=== PATIENT | female | born 1955 | race Caucasian/White ===

== ENCOUNTER 2018-02-23 13:55 | Inpatient (IN) | payer OTHER ==
[~2018-02-23] VITALS: Ht 167.6 cm; Wt 75.7 kg
[~2018-02-23 13:55] MED LIST: APRISO0.375 GM PO; ASPIRIN CHEW81 MG PO; ASPIRIN81 MG PO; ATORVASTATIN CA40 MG PO; CALCIUM PO; CIPRO500 MG PO; CRANBERRY PLUS VIT C PO; DAILY VITAMIN1 EAC3 PO; FLAGYL250 MG PO; LEVAQUIN500 MG PO; LEVOTHYROXINE75 MCG PO; LEVOTHYROXINE88 MCG PO; LISINOPRIL40 MG PO; LISINOPRIL5 MG PO; MACRODANTIN100 MG PO; NIASPAN500 MG; OMEGA 3 1,0001 EACH PO; PROBIOTIC & AC1 EACH PO; THYROID MED; TYLENOL WITH C1 EACH PO; ULTRAM 50MG50 MG PO; VITAMIN B12 PO; VITAMIN C1000 M1 PO; ZOFRAN ODT4 MG SL
--- OUTSIDE RECORDS SUMMARY | 2018-02-23 13:59 | XMS REPORT ---
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 Allergies, Adverse Reactions, Alerts This patient has no known allergies or adverse reactions. Medications This patient has no known medications. Results Test Description Test Time Test Comments Text Results Atomic Results Result Comments ABDOMEN COMP INCL UPR or DECUB [place] [address] Patient Name: EDMUND PRINCE MR #: [id number] : 1955 Age/Sex: 62/F Req #: [id number] Adm Physician: JERRY ARREDONDO MD Ordered by: NADYA TAVERAS MD Report #: [id number] Location: MED/SURG Room/Bed: [facility] Procedure: [id number] DX/ABDOMEN COMP INCL UPR or DECUB Exam Date: 05/12/17 Exam Time: 0555 REPORT STATUS: Signed EXAM: ABDOMEN COMP INCL UPR or DECUB, supine and erect DATE: 05/12/2017 5:00 AM Time stamp on exam: 0545 hours INDICATION: Small bowel obstruction COMPARISON: KUB May 11, 2017 FINDINGS: LINES /TUBES: None BOWEL PATTERN: Resolution of small bowel dilation. Oral contrast seen in the ascending and transverse colon. SOFT TISSUES: Surgical sutures project over the pelvis. LUNG BASES: Not included BONES: No acute findings. IMPRESSION: No evidence of bowel obstruction. Signed by: Dr. Arlene Ortiz M.D. on 05/12/2017 6:32 AM Dictated By: ARLENE ORTIZ MD 1 Transcribed By: SUZIE on 05/12/17631 COPY TO: NADYA TAVERAS MD ABDOMEN COMP INCL UPR or DECUB [place] [address] Patient Name: EDMUND PRINCE MR #: [id number] : 1955 Age/Sex: 62/F Req #: [id number] Adm Physician: JERRY ARREDONDO MD Ordered by: NADYA TAVERAS MD Report #: [id number] Location: MED/SURG Room/Bed: [facility] Procedure: [id number] DX/ABDOMEN COMP INCL UPR or DECUB Exam Date: 05/11/17 Exam Time: 0532 REPORT STATUS: Signed EXAM: ABDOMEN COMP INCL UPR or DECUB, supine and erect DATE: 05/11/2017 5:00 AM Time stamp on exam: 0532 hours INDICATION: Small bowel obstruction COMPARISON: KUB May 09, 2017 FINDINGS: LINES /TUBES: None BOWEL PATTERN: Stable mildly dilated loops of small bowel. Residual oral contrast seen in the right colon. SOFT TISSUES: No abnormal calcifications. No mass effect. LUNG BASES: Bibasilar atelectasis BONES: No acute findings. IMPRESSION: No interval change. Partial small bowel obstruction versus ileus. Signed by: Dr. Arlene rOtiz M.D. on 05/11/2017 6:13 AM Dictated By: ARLENE ORTIZ MD 2 Transcribed By : SUZIE on 05/11/17612 COPY TO: NADYA TAVERAS MD ABDOMEN COMP INCL UPR or DECUB [place] [address] Patient Name: EDMUND PRINCE MR #: [id number] : 1955 Age/Sex: 62/F Req #: [id number] Adm Physician: JERRY ARREDONDO MD Ordered by: NADYA TAVERAS MD Report #: [id number] Location: MED/SURG Room/Bed: [facility] Procedure: [id number] DX/ABDOMEN COMP INCL UPR or DECUB Exam Date: 05/10/17 Exam Time: 626 REPORT STATUS: Signed EXAM: ABDOMEN COMP INCL UPR or DECUB, supine and erect DATE: 05/10/2017 5:00 AM Time stamp on exam: 0627 hours INDICATION: Small bowel obstruction COMPARISON: KUB May 09, 2017 FINDINGS: LINES /TUBES: The nasal/orogastric tube is no longer visualized. BOWEL PATTERN: Mildly distended loop of small bowel in the pelvis to 3.5 cm. Oral contrast is seen in the right and transverse colon. SOFT TISSUES: No abnormal calcifications. No mass effect. LUNG BASES: Bibasilar atelectasis. BONES: No acute findings. IMPRESSION: Mildly distended loops of small bowel in the pelvis to 3.5 cm. And could represent ileus or partial small bowel obstruction. Signed by: Dr. Arlene Ortiz M.D. on 6:56 AM Dictated By: ARLENE ORTIZ MD 5 Transcribed By: SUZIE on 05/10/17655 COPY TO: NADYA TAVERAS MD ABDOMEN COMP INCL UPR or DECUB [place] [address] Patient Name: EDMUND PRINCE MR #: [id number] : 1955 Age/Sex: 62/F Req #: [id number] Adm Physician: JERRY ARREDONDO MD Ordered by: NADYA TAVERAS MD Report #: [id number] Location: MED/SURG Room/Bed: [facility] Procedure: [id number] DX/ABDOMEN COMP INCL UPR or DECUB Exam Date: 05/09/17 Exam Time: 05 REPORT STATUS: Signed EXAM: ABDOMEN COMP INCL UPR or DECUB, supine and erect DATE: 05/09/2017 5:00 AM Time stamp on exam: 0522 hours INDICATION: Small bowel obstruction COMPARISON: KUB May 08, 2017 FINDINGS: LINES /TUBES: Stable position of nasal/orogastric tube. BOWEL PATTERN: Oral contrast is seen throughout the colon. General paucity of small bowel gas. SOFT TISSUES: Surgical sutures lower pelvis. LUNG BASES: Bibasilar atelectasis. BONES: No acute findings. IMPRESSION: No findings to suggest bowel obstruction. Signed by: Dr. Arlene Ortiz M.D. on 05/09/2017 6:24 AM Dictated By: ARLENE ORTIZ MD 3 Transcribed By: SUZIE on 623 COPY TO: NADYA TAVERAS MD ABDOMEN COMP INCL UPR or DECUB [place] [address] Patient Name: EDMUND PRINCE MR #: [id number] : 1955 Age/Sex: 62/F Req #: [id number] Adm Physician: JERRY ARREDONDO MD Ordered by: NADYA TAVERAS MD Report #: [id number] Location: MED/SURG Room/Bed: [facility] Procedure: [id number] DX/ABDOMEN COMP INCL UPR or DECUB Exam Date: Exam Time: REPORT STATUS: Signed EXAM: ABDOMEN COMP INCL UPR or DECUB DATE: 05/08/2017 5:00 AM Time stamp on exam: 6 hours a.m. INDICATION: Bowel obstruction. COMPARISON: CT of the abdomen and pelvis in 05/07/2017 and KUB on 05/07/2017 FINDINGS : LINES/TUBES: NG tube is visualized with tip overlying the left upper quadrant BOWEL PATTERN: Interval increase in distention of mid portion of the small bowel measuring 4.4 cm in diameter. However, the oral contrast has reached the colon. SOFT TISSUES: No abnormal calcifications. No mass effect. LUNG BASES: Not included BONES: No acute findings. IMPRESSION: Persistent segmental dilatation of the mid small bowel. However, the oral contrast has reached the colon suggestive of partial small bowel obstruction Signed by: Dr. Rome Bishop M.D. on 05/08/2017 6:46 AM Dictated By: ROME PETERS MD 5 Transcribed By: SUZIE on 05/08/17645 COPY TO: NADYA TAVERAS MD ABDOMEN-1VIEW (KUB) [place] [address] Patient Name: EDMUND PRINCE MR #: [id number] : 1955 Age/Sex: 62/F Req # : [id number] Adm Physician: JERRY ARREDONDO MD Ordered by: DUANE PATEL MD Report #: [id number] Location: MED/SURG Room/Bed: [facility] _ Procedure: [id number] DX/ABDOMEN-1VIEW (KUB) Exam Date: 05/07/17 Exam Time: 1715 REPORT STATUS: Signed EXAM: Abdomen, 1 Views INDICATION: Pain. COMPARISON: CT abdomen and pelvis 2016. FINDINGS: LINES: Enteric feeding catheter is present with the tip projecting over the expected region of the gastric fundus. Bowel: No air fluid levels.. No pneumoperitoneum.. Moderate amount of retained feces and air are noted in the colon and rectum. No calcifications project over the renal shadows, expected course of the ureters bilaterally, and bladder. Soft tissues: Normal. Bones: No acute osseous abnormality. Impression: No acute radiographic abnormality. Signed by: Dr. Jonathan Lagunas M.D. on 05/07/2017 5:31 PM Dictated By: JONATHAN LAGUNAS MD 30 Transcribed By: SUZIE on 05/07/171730 COPY TO: DUANE PATEL MD CT ABDOMEN/PELVIS [place] [address] Patient Name: EDMUND PRINCE MR #: [id number] : 1955 Age/Sex: 62/F Req # : [id number] Adm Physician: Ordered by: DUANE PATEL MD Report #: [id number] Location: ER Room/Bed: Procedure: [id number] CT/CT ABDOMEN/PELVIS WO Exam Date: 05/07/17 Exam Time: 1507 REPORT STATUS: Signed EXAM: CT Abdomen and Pelvis WITHOUT contrast INDICATION: Abdominal pain COMPARISON: CT abdomen and pelvis TECHNIQUE: Abdomen and pelvis were scanned utilizing a multidetector helical scanner from the lung base to the pubic symphysis. Coronal and sagittal reformations were obtained. The lack of intravenous contrast limits the evaluation of the solid organs, vasculature, and possible lymphadenopathy. Protocol: General survey without contrast IV CONTRAST : No intravenous contrast was administered as per physician request. ORAL CONTRAST: None. COMPLICATIONS: None. RADIATION DOSE: Total Exam DLP: 224.4 mGy*cm. CTDIvol has been reviewed. It is below the limits set by the Radiation Protocol Committee (RPC). FINDINGS: LINES: None. Lower thorax: No parenchymal abnormality. No pneumothorax. No pleural effusion. Bilateral breast prostheses. Liver: No focal mass. No hepatomegaly. Normal parenchyma. Gallbladder: No gallstones. No gallbladder distention. Biliary tree: No intrahepatic duct dilation. No extrahepatic duct dilation. Spleen: No splenomegaly. No focal mass. Pancreas: No focal mass. Normal pancreatic duct. No peripancreatic inflammatory changes. Kidneys: No obstructing calculi. No hydronephrosis. No cysts. No perinephric soft tissue inflammatory changes. Adrenal glands: No adrenal nodules.. Bladder: Normal urinary bladder. Pelvic organs: Hysterectomy. No ovaries are visualized. GI: No bowel wall thickening. Multiple fluid-filled distended loops of small bowel are present, with a likely transition zone in the lower pelvis. Stomach is normal. Postoperative changes of the sigmoid colon. No appendix is visualized. A moderate amount of retained feces limits intraluminal evaluation of the colon. Peritoneum/retroperitoneum: No pneumoperitoneum. No ascites. No drainable fluid collection. Lymph nodes: No lymphadenopathy. . Vessels: No focal abnormality. Atherosclerotic calcifications. Limited evaluation. Bones: No focal abnormality. Minimal degenerative changes of the lumbar spine. Soft tissues: No focal abnormality. IMPRESSION: Fluid-filled dilated loops of small bowel consistent with partial small bowel obstruction, with the transition zone likely located in the lower pelvis. Signed by: Dr. Jonathan Lagunas M.D. on 05/07/2017 3:49 PM Dictated By: JONATHAN LAGUNAS MD 48 Transcribed By: SUZIE on 05/07/171548 COPY TO: DUANE PATEL MD CHEST SINGLE (PORTABLE) [place] [address] Patient Name: EDMUND PRINCE MR #: [id number] : 1955 Age/Sex: 62/F Req #: [id number] Adm Physician: JERRY ARREDONDO MD Ordered by: DUANE PATEL MD Report #: [id number] Location: MED/SURG Room/Bed: [facility] _ Procedure: [id number] DX/CHEST SINGLE (PORTABLE) Exam Date : 05/07/17 Exam Time: 1250 REPORT STATUS: Signed EXAMINATION: Chest, CHEST SINGLE (PORTABLE) INDICATION: Bowel obstruction COMPARISON: Abdominal series with PA chest 03/20/2016 FINDINGS: LINES: Left subclavian chest port with tip projecting over the expected region of the left brachiocephalic vein. Heart: Normal cardiac silhouette. Vascular: The pulmonary vasculature is within normal limits. Mediastinum: No mediastinal, hilar, or axillary mass or lymphadenopathy. Lungs: No parenchymal mass. No focal consolidation. Pleura: No pleural effusion. No pneumothorax. Bones: No acute osseous abnormality. Degenerative changes of the thoracic spine. Soft tissues: Normal. Impression: No acute radiographic abnormality. Signed by: Dr. Jonathan Lagunas M.D. on 05/07/2017 1:23 PM Dictated By: JONATHAN LAGUNAS MD 1323 COPY TO: DUANE PATEL MD
[2018-02-23 14:26] LABS: BASOPHILS % 0.4 % (0.0-1.0); EOSINOPHILS # (AUTO) 0.1 (0.0-0.4); EOSINOPHILS % 0.8 % (0.0-6.0); HEMATOCRIT 44.8 % (34.2-44.1); HEMOGLOBIN 14.6 g/dL (12.0-16.0); LYMPHOCYTES # (AUTO) 1.2 (1.0-3.2); LYMPHOCYTES % 13.6 % (18.0-39.1); MEAN CORPUSCULAR HEMOGLOBIN 28.4 pg (28-32); MEAN CORPUSCULAR HGB CONC 32.6 g/dL (31-35); MEAN CORPUSCULAR VOLUME 87.2 fL (81-99); MONOCYTES # (AUTO) 0.5 (0.2-0.8); MONOCYTES % 5.4 % (4.4-11.3); NEUTROPHILS # (AUTO) 7.3 (2.1-6.9); NEUTROPHILS % 79.5 % (38.7-80.0); PLATELET COUNT 319 x10e3/uL (140-360); RED BLOOD COUNT 5.14 x10e6/uL (3.6-5.1); RED CELL DISTRIBUTION WIDTH 13.7 % (11.7-14.4)
[2018-02-23 14:34] LABS: INR 0.96
[2018-02-23 14:35] LABS: PARTIAL THROMBOPLASTIN TIME 24.1 seconds (23.8-35.5)
[2018-02-23 14:43] LABS: ALANINE AMINOTRANSFERASE 30 IU/L (0-55); ALBUMIN 4.1 g/dL (3.5-5.0); ALBUMIN/GLOBULIN RATIO 1.2 (0.8-2.0); ALKALINE PHOSPHATASE 137 IU/L (40-150); BLOOD UREA NITROGEN 20 mg/dL (7-26); BUN/CREATININE RATIO 22 (6-25); CALCIUM 10.8 mg/dL (8.4-10.2); CARBON DIOXIDE 30 mmol/L (22-29); CHLORIDE 103 mmol/L (98-107); CREATINE KINASE 34 IU/L (29-168); CREATININE, SERUM 0.91 mg/dL (0.57-1.11); EST GLOMERULAR FILTRATION RATE > 60 ML/MIN (60-); GLUCOSE 129 mg/dL (74-118); SODIUM 143 mmol/L (136-145)
[2018-02-23] MEDS ORDERED: MORPHINE SULFATE 2 MG/ML SYR IV STA (15:09)
[2018-02-23] MEDS ORDERED: PANTOPRAZOLE 40 MG 10ML VIAL IV STA (15:09)
[2018-02-23] MEDS ORDERED: ONDANSETRON HCL INJ 2 MG/ML VIAL IV STA (15:09)
[2018-02-23 16:03] LABS: BILIRUBIN,URINE NEGATIVE (NEGATIVE); CLARITY,URINE SL CLOUDY (CLEAR); COLOR,URINE YELLOW (YELLOW); KETONES,URINE TRACE (NEGATIVE); LEUKOCYTE ESTERASE ,URINE TRACE (NEGATIVE); NITRITE,URINE NEGATIVE (NEGATIVE); PROTEIN,URINE DIPSTICK 1+ (NEGATIVE); URINE UROBILINOGEN 0.2 mg/dL (0.2 - 1)
[2018-02-23] MEDS ORDERED: SODIUM CHLORIDE 0.9% 1000ML 1,000 ML IV STA ×2 (16:05→19:35)
[2018-02-23 16:17] LABS: BACTERIA,URINE FEW /HPF; CALCIUM OXALATE CRYSTALS,UR MANY (FEW); EPITHELIAL CELLS,URINE FEW /LPF; MUCUS,URINE FEW (RARE); RBC,URINE 0-5 /HPF (0-5)
--- NOTE | 2018-02-23 18:52 | Diagnostic Imaging Report ---
PROCEDURE: CT ABDOMEN AND PELVIS WITH CONTRAST TECHNIQUE: The abdomen and pelvis were scanned utilizing a multidetector helical scanner from the diaphragm to the lesser trochanter after the IV administration of 100 cc of Isovue 370 and the oral administration of water. Coronal and sagittal multiplanar reformations were obtained. COMPARISON: CT of the abdomen and pelvis from 02/10/2017 and 03/18/2016 INDICATIONS: MID ABDOMINAL PAIN FINDINGS: LOWER THORAX: Subsegmental atelectasis in the lung bases. HEPATOBILIARY: No focal hepatic lesions. No biliary ductal dilatation. SPLEEN: No splenomegaly. PANCREAS: No focal masses or ductal dilatation. ADRENALS: No right adrenal nodules. There is diffuse thickening of the left adrenal gland, likely due to hyperplasia. KIDNEYS/URETERS: No hydronephrosis, stones, or solid mass lesions. PELVIC ORGANS/BLADDER: The uterus is absent. The bladder is unremarkable. PERITONEUM / RETROPERITONEUM: No free air or fluid. LYMPH NODES: No lymphadenopathy. VESSELS: Moderate atherosclerotic calcification of the aorta and its branches. GI TRACT: Post surgical changes of prior low anterior resection with anastomotic suture line in the low rectum. There is diffuse dilatation of the distal jejunal and ileum, measuring up to 3.4 cm. There is a transition point in the pelvis in the distal ileum (series 2, image 55). BONES AND SOFT TISSUES: Bilateral breast implants are partially visualized. IMPRESSION: Small bowel obstruction with transition point in the pelvis, in the distal ileum. Suspect adhesions as an etiology. Overall, the findings appear very similar to the prior study from 02/10/2017. Dictated by: Christiano Puente M.D. on 02/23/2018 at 18:55 Electronically approved by: Christiano Puente M.D. on 02/23/2018 at 18:55
[2018-02-23] MEDS ORDERED: SODIUM CHLORIDE 0.9% 250ML IRRIG IR SCH (19:30)
[2018-02-23] MEDS ORDERED: HYDROMORPHONE 1MG/1ML INJ IV ONE (19:45)
[2018-02-23] MEDS: SODIUM CHLORIDE 0.9% 250ML IRRIG IR SCH ×2 (19:57→19:58)
[2018-02-23] MEDS: FAMOTIDINE 20 MG/2 ML VIAL IV SCH (20:21)
[2018-02-23] MEDS: PIPER-TAZ 3.375 GM 50 ML IV SCH (20:21)
[2018-02-23 20:45] VITALS: BP 119/56
[2018-02-23] MEDS: SODIUM CHLORIDE 0.9% 1000ML 1,000 ML IV SCH (21:20)
--- NOTE | 2018-02-23 21:33 | Diagnostic Imaging Report ---
EXAM: ABDOMEN-1VIEW (KUB) DATE: 02/23/2018 9:00 PM Time stamp on exam: 2111 hours INDICATION: NG tube placement COMPARISON: None FINDINGS: LINES/TUBES: T12 NG tube is visualized in the location of the distal mediastinum at the level of the left T10 transverse process. Advancement is recommended. BOWEL PATTERN: No evidence for obstruction. SOFT TISSUES: There is opacification of the bilateral renal collecting systems without evidence of hydronephrosis. The urinary bladder is partially opacified. There are sutures in the region of the lower pelvis. LUNG BASES: Not included BONES: No acute findings. IMPRESSION: 1. No evidence of small bowel obstruction. 2. NG tube needs to be advanced Signed by: Dr. Rome Bishop M.D. on 02/23/2018 9:30 PM
[2018-02-23] MEDS ORDERED: IOPAMIDOL 370 MG/ML 200 ML INFUS..BTL INJ ONE (22:16)
[2018-02-23] MEDS ORDERED: SODIUM CHLORIDE 0.9% 50ML 50 ML ONE (22:16)
--- NOTE | 2018-02-23 23:23 | Diagnostic Imaging Report ---
EXAM: ABDOMEN-1VIEW (KUB) DATE: 02/23/2018 10:21 PM Time stamp on exam: 2226 hours INDICATION: NG tube repositioning COMPARISON: 02/23/2018 at 2112 hours FINDINGS: LINES/TUBES: NG tube is visualized in the location of the distal mediastinum at the level of the left T11-T12. Advancement is recommended. Chest port is partially visualized with tip at the proximal SVC. BOWEL PATTERN: No evidence for obstruction. SOFT TISSUES: There is opacification of the bilateral renal collecting systems without evidence of hydronephrosis. The urinary bladder is partially opacified. There are sutures in the region of the lower pelvis. LUNG BASES: Lung bases are clear. BONES: No acute findings. IMPRESSION: 1. No evidence of small bowel obstruction. 2. NG tube needs to be advanced Signed by: Dr. Rome Bishop M.D. on 02/23/2018 11:20 PM
[2018-02-23] MEDS: ONDANSETRON HCL INJ 2 MG/ML VIAL IV PRN (23:43)
[2018-02-23] MEDS: HYDROMORPHONE 1MG/1ML INJ IV PRN (23:43)
[2018-02-24] VITALS (8 sets, daily range): BP systolic 115–157; BP diastolic 55–84
--- NOTE | 2018-02-24 00:33 | Diagnostic Imaging Report ---
EXAM: ABDOMEN-1VIEW (KUB) DATE: 02/23/2018 11:51 PM Time stamp on exam: 0014 hours of 02/24/2018 INDICATION: NG tube placement COMPARISON: 02/23/2018 at 2112 hours and at 2226 hours FINDINGS: LINES/TUBES: NG tube is visualized with tip now at the level of the GE junction and sidehole within the distal esophagus. Repositioning is recommended. BOWEL PATTERN: No evidence for obstruction. SOFT TISSUES: There is opacification of the bilateral renal collecting systems without evidence of hydronephrosis. The urinary bladder is partially opacified. There are sutures in the region of the lower pelvis. LUNG BASES: Lung bases are clear. BONES: No acute findings. IMPRESSION: 1. No evidence of small bowel obstruction. 2. NG tube needs to be advanced Signed by: Dr. Rome Bishop M.D. on 02/24/2018 12:30 AM
--- NOTE | 2018-02-24 02:13 | Diagnostic Imaging Report ---
EXAM: ABDOMEN-1VIEW (KUB) DATE: 02/24/2018 1:10 AM Time stamp on exam: 1:17 AM INDICATION: NG tube placement COMPARISON: 02/24/2018 and 02/23/2018 FINDINGS: LINES/TUBES: NG tube is now visualized in good position overlying the left upper quadrant in the distribution of the gastric body. BOWEL PATTERN: No evidence for obstruction. SOFT TISSUES: Residual opaque contrast noted in the bilateral renal collecting systems. LUNG BASES: Lung bases are clear. BONES: No acute findings. IMPRESSION: NG tube now in good position. Nonobstructive bowel gas pattern. Signed by: Dr. Rome Bishop M.D. on 02/24/2018 2:10 AM
[2018-02-24] MEDS: SODIUM CHLORIDE 0.9% 250ML IRRIG IR SCH ×6 (02:27→20:23)
[2018-02-24] MEDS: PIPER-TAZ 3.375 GM 50 ML IV SCH ×3 (03:56→20:23)
[2018-02-24] MEDS: SODIUM CHLORIDE 0.9% 1000ML 1,000 ML IV SCH ×3 (03:56→19:31)
[2018-02-24] MEDS: HYDROMORPHONE 1MG/1ML INJ IV PRN ×5 (04:03→22:54)
[2018-02-24] MEDS: ONDANSETRON HCL INJ 2 MG/ML VIAL IV PRN ×4 (04:03→22:54)
[2018-02-24 07:28] LABS: BASOPHILS % 0.4 % (0.0-1.0); EOSINOPHILS # (AUTO) 0.1 (0.0-0.4); EOSINOPHILS % 2.8 % (0.0-6.0); HEMATOCRIT 37.5 % (34.2-44.1); HEMOGLOBIN 11.8 g/dL (12.0-16.0); LYMPHOCYTES # (AUTO) 1.4 (1.0-3.2); LYMPHOCYTES % 27.4 % (18.0-39.1); MEAN CORPUSCULAR HEMOGLOBIN 28.3 pg (28-32); MEAN CORPUSCULAR HGB CONC 31.5 g/dL (31-35); MEAN CORPUSCULAR VOLUME 89.9 fL (81-99); MONOCYTES # (AUTO) 0.8 (0.2-0.8); MONOCYTES % 16.1 % (4.4-11.3); NEUTROPHILS # (AUTO) 2.7 (2.1-6.9); NEUTROPHILS % 53.3 % (38.7-80.0); PLATELET COUNT 227 x10e3/uL (140-360); RED BLOOD COUNT 4.17 x10e6/uL (3.6-5.1)
[2018-02-24 07:43] LABS: ALANINE AMINOTRANSFERASE 22 IU/L (0-55); ALBUMIN 3.2 g/dL (3.5-5.0); ALBUMIN/GLOBULIN RATIO 1.2 (0.8-2.0); ALKALINE PHOSPHATASE 102 IU/L (40-150); BLOOD UREA NITROGEN 17 mg/dL (7-26); BUN/CREATININE RATIO 22 (6-25); CALCIUM 9.2 mg/dL (8.4-10.2); CARBON DIOXIDE 26 mmol/L (22-29); CHLORIDE 108 mmol/L (98-107); CREATININE, SERUM 0.78 mg/dL (0.57-1.11); EST GLOMERULAR FILTRATION RATE > 60 ML/MIN (60-); GLUCOSE 94 mg/dL (74-118); POTASSIUM 4.1 mmol/L (3.5-5.1)
[2018-02-24 07:56] LABS: ANION GAP 13.1 mmol/L (8-16); SODIUM 143 mmol/L (136-145)
--- NOTE | 2018-02-24 08:11 | History and Physical ---
PRIMARY CARE PHYSICIAN: Dr. Loredo TELEVISION PROGRAM DIRECTOR: Dr. Bonilla CHIEF COMPLAINT: Abdominal pain, nausea and vomiting. HISTORY OF PRESENT ILLNESS: This is a 63-year-old woman with a history of colon cancer diagnosed in 2007, and is status post surgical resection and chemoradiation therapy with recurrent small-bowel obstruction, now developing abdominal pain, nausea and vomiting prompting her visit to the hospital. Found to have small-bowel obstruction. NG tube was placed. She was admitted for further evaluation and management. Last bowel movement was yesterday, which was small. PAST MEDICAL HISTORY: Colon cancer in 2007. She is status post chemoradiation therapy and resection of the mass, ulcerative colitis, recurrent small-bowel obstruction, hypertension, hyperlipidemia, hypothyroidism. PAST SURGICAL HISTORY: Breast augmentation, right wrist fracture repair, , tubal ligation, colonic mass resection in 2007, hysterectomy. ALLERGIES: PER ELECTRONIC MEDICAL RECORD. FAMILY HISTORY/SOCIAL HISTORY: Patient is single. She has 2 children. No alcohol, illicits or cigarettes. MEDICATIONS: Per electronic medical record. REVIEW OF SYSTEMS: Denies any dizziness or chest pain. PHYSICAL EXAMINATION VITAL SIGNS: Reviewed. GENERAL: A tired-appearing woman resting in bed. HEENT: Anicteric. She has an NG tube in place. CARDIOVASCULAR: Normal S1 and S2. LUNGS: Moderate breath sounds. ABDOMEN: Soft and nondistended. She has midabdomen with mild tenderness. No rebound or guarding. EXTREMITIES: No edema or calf tenderness. NEUROLOGICAL: Alert and oriented times 3. Moving all extremities. SKIN: Dry. PSYCHIATRIC: Normal affect. LABS: Reviewed. MEDICATIONS: Reviewed. ASSESSMENT AND PLAN: A 63-year-old woman with: 1. Small-bowel obstruction: Will get surgery consultation and gastroenterology consultation. The patient has nasogastric tube. Will ambulate the patient. Repeat imaging shows small-bowel obstruction may not be present. Will further evaluate. 2. History of colon cancer: Will need followup endoscopy. 3. Hyperglycemia: Obtain hemoglobin A1c and lipid panel. 4. Overweight state: Screen for diabetes and obtain lipid panel. 5. Urinary tract infection with low-grade fever: Will treat with antibiotics. 6. Hypothyroidism: Will restart Synthroid intravenously. 7. Ulcerative colitis: Will defer to gastroenterology services. May benefit from steroids. 8. Hyperlipidemia: Will hold statin at this time. 9. Hypertension: Will treat with p.r.n. medications. 10. Prophylaxis: Will continue Pepcid intravenously and use sequential compression devices bilaterally. 11. Disposition: Ambulate the patient. Follow up gastroenterology recommendations. Conservative management at this time. Follow up surgical recommendations. Job#: [id number] OBDULIA
[2018-02-24 08:12] LABS: CHOL/HDL RATIO 3.1 (3.0-3.6)
[2018-02-24] MEDS: LEVOTHYROXINE SODIUM 100 MCG/VIAL IV SCH (08:58)
[2018-02-24] MEDS: FAMOTIDINE 20 MG/2 ML VIAL IV SCH (17:44)
[2018-02-24] MEDS: BISACODYL 10 MG SUPP PR SCH (20:23)
[2018-02-25] VITALS (9 sets, daily range): BP systolic 141–199; BP diastolic 67–86
[2018-02-25] MEDS: SODIUM CHLORIDE 0.9% 250ML IRRIG IR SCH ×6 (03:03→22:48)
[2018-02-25] MEDS: SODIUM CHLORIDE 0.9% 1000ML 1,000 ML IV SCH ×4 (03:03→19:31)
[2018-02-25] MEDS: PIPER-TAZ 3.375 GM 50 ML IV SCH ×3 (04:05→20:39)
[2018-02-25] MEDS: HYDROMORPHONE 1MG/1ML INJ IV PRN ×5 (04:05→20:39)
--- NOTE | 2018-02-25 06:55 | Diagnostic Imaging Report ---
EXAM: ABDOMEN ACUTE SERIES W/PA CXR DATE: 02/25/2018 8:00 AM Time stamp on exam: 0611 hours INDICATION: Small bowel obstruction COMPARISON: CT of the abdomen and pelvis on 02/23/2018 and multiple KUBs. FINDINGS: LINES/TUBES: NG tube is in good position with tip at the gastric body. Left chest port is stable with tip at the level of the SVC. BOWEL PATTERN: No evidence for obstruction. SOFT TISSUES: Surgical sutures in the lower pelvis. CHEST: Minimal bibasilar atelectasis. BONES: No acute findings. IMPRESSION: Nonobstructive bowel gas pattern. Signed by: Dr. Rome Bishop M.D. on 02/25/2018 6:51 AM
[2018-02-25] MEDS: BISACODYL 10 MG SUPP PR SCH ×2 (08:00→21:09)
[2018-02-25] MEDS: LEVOTHYROXINE SODIUM 100 MCG/VIAL IV SCH (08:47)
[2018-02-25] MEDS: FAMOTIDINE 20 MG/2 ML VIAL IV SCH ×2 (08:47→16:22)
[2018-02-25] MEDS: LABETALOL HCL 5 MG/ML 20ML VIAL IV PRN ×2 (12:11→16:22)
[2018-02-25] MEDS: ONDANSETRON HCL INJ 2 MG/ML VIAL IV PRN (12:31)
[2018-02-25] MEDS ORDERED: ASPIRIN 81 MG CHEW TAB PO ONE (12:45)
[2018-02-25] MEDS ORDERED: MORPHINE SULFATE 2 MG/ML SYR IV ONE (12:45)
[2018-02-25] MEDS ORDERED: NITROGLYCERIN 0.4 MG SUBL SL PRN (12:45)
[2018-02-25] MEDS ORDERED: NITROGLYCERIN 0.4 MG SUBL SL ONE (13:30)
[2018-02-25 13:40] LABS: CREATINE KINASE MB 1.8 ng/mL (0-5.0)
--- NOTE | 2018-02-25 13:49 | Progress Note ---
DATE: February 25, 2018, Monday, at 12:30 p.m. MEDICINE PROGRESS NOTE OVERNIGHT: No acute events. REVIEW OF SYSTEMS: Patient denies shortness of breath, dizziness, nausea, vomiting, or dizziness at this time. However, patient with complaint of midsternal chest pain, rates 6 out of 10 with sudden onset. OBJECTIVE VITAL SIGNS: T 97.__, P 84, respirations 18, BP 199/86. O2 sat on room air is 95%. GENERAL APPEARANCE: This is an anxious, tired-appearing elderly female resting, in bed. HEENT: Normocephalic. Positive NG tube to intermittent low wall suction noted to naris. No sinus tenderness. Oral mucosa moist and intact. CARDIOVASCULAR: S1 and S2 auscultated. Heart tones distant. No murmur appreciated at this time. LUNGS: Moderate breath sounds with fair excursion. ABDOMEN: Soft and nondistended. Midabdomen and epigastric area with mild tenderness without guarding or rebound. EXTREMITIES: No edema or calf tenderness. Positive DP and PT pulses. NEUROLOGIC: Alert and oriented x3. Moves all extremities, and gross motor skills are intact upon gross observation. SKIN: Dry. PSYCHIATRIC: Anxious affect. LABS: WBCs from day prior 5.0, and H\T\H are 11.8 and 37.5 respectively. Chemistry from day prior with sodium 143, potassium 4.1, chloride 108, CO2 26, gap 13.1, BUN 17, creatinine 0.78. Pdxfq-rb-cdno glucose was 94 on that day. Hemoglobin A1c noted at 4.9. Lipid panel with triglycerides at 101 and cholesterol 101 as well. Both LDL and HDL are noted to be in the lower end of the range. Urine is positive for leukocyte esterase trace. MEDICATIONS 1. IV Zosyn. 2. NS at 125. 3. IV Synthroid. 4. Pepcid 20 mg. 5. PRN Dilaudid. 6. PRN Zofran. 7. PRN labetalol. ASSESSMENT AND PLAN: This is a 63-year-old woman with 1. Small-bowel obstruction. GI is following, with low intermittent wall suction. Notes indicate this may be likely due to adhesions. We will continue conservative management with NG tube and ambulation. Continue to monitor. 2. History of colon cancer. Will need followup outpatient endoscopy. 3. Hyperglycemia. A1c 5.5 and lipid panel as above. 4. Overweight state. Patient counseling for calorie restriction. 5. Urinary tract infection with low-grade fever. IV antibiotics as above. 6. Hypothyroidism. IV Synthroid. 7. Ulcerative colitis. Follow up GI recs. Consider steroids. 8. Hyperlipidemia. Statin on hold at this time. 9. Hypertension. PRN labetalol given x1 this day with a repeat dose due to complaint of chest pain. 10. Prophylaxis. Pepcid IV and SCDs to lower extremities. 11. Disposition. In considering patient's complaint of a sudden onset of chest pain upon this provider's arrival at bedside, we will initiate serial cardiac enzymes, 12-lead EKG, nitroglycerin sublingual spray, and p.r.n. morphine. Will ask Cardiology to read 12-lead and provide supplemental oxygen and follow up closely. We will continue GI recommendations. Dictated by: Mayra Lopez NP Job#: [id number] EV
[2018-02-26] VITALS (7 sets, daily range): BP systolic 161–190; BP diastolic 72–93
[2018-02-26] MEDS: HYDROMORPHONE 1MG/1ML INJ IV PRN ×6 (00:41→21:47)
[2018-02-26] MEDS: LABETALOL HCL 5 MG/ML 20ML VIAL IV PRN ×5 (00:42→20:35)
[2018-02-26] MEDS: SODIUM CHLORIDE 0.9% 1000ML 1,000 ML IV SCH ×3 (03:56→19:31)
[2018-02-26] MEDS: SODIUM CHLORIDE 0.9% 250ML IRRIG IR SCH ×5 (03:56→19:45)
[2018-02-26] MEDS: PIPER-TAZ 3.375 GM 50 ML IV SCH ×3 (04:15→19:41)
--- NOTE | 2018-02-26 06:05 | Diagnostic Imaging Report ---
EXAM: ABDOMEN-1VIEW (KUB) DATE: 02/26/2018 5:00 AM Time stamp on exam: 0528 hours INDICATION: Small bowel obstruction COMPARISON: Acute abdominal series on 02/25/2018 FINDINGS: LINES/TUBES: NG tube is in good position with tip at the gastric body. BOWEL PATTERN: No evidence for obstruction. Paucity of gas throughout the abdomen SOFT TISSUES: Surgical sutures in the lower pelvis. CHEST: Minimal bibasilar atelectasis. BONES: No acute findings. IMPRESSION: Nonobstructive bowel gas pattern. Signed by: Dr. Rome Bishop M.D. on 02/26/2018 6:01 AM
[2018-02-26 06:29] LABS: BASOPHILS % 0.4 % (0.0-1.0); EOSINOPHILS # (AUTO) 0.2 (0.0-0.4); EOSINOPHILS % 3.2 % (0.0-6.0); HEMATOCRIT 35.2 % (34.2-44.1); HEMOGLOBIN 10.9 g/dL (12.0-16.0); LYMPHOCYTES # (AUTO) 1.4 (1.0-3.2); LYMPHOCYTES % 25.2 % (18.0-39.1); MEAN CORPUSCULAR HEMOGLOBIN 28.5 pg (28-32); MEAN CORPUSCULAR VOLUME 91.9 fL (81-99); MONOCYTES # (AUTO) 0.5 (0.2-0.8); MONOCYTES % 8.6 % (4.4-11.3); NEUTROPHILS # (AUTO) 3.3 (2.1-6.9); NEUTROPHILS % 62.2 % (38.7-80.0); PLATELET COUNT 169 x10e3/uL (140-360); RED BLOOD COUNT 3.83 x10e6/uL (3.6-5.1); RED CELL DISTRIBUTION WIDTH 13.6 % (11.7-14.4)
[2018-02-26 07:10] LABS: ALANINE AMINOTRANSFERASE 20 IU/L (0-55); ALBUMIN 3.1 g/dL (3.5-5.0); ALBUMIN/GLOBULIN RATIO 1.2 (0.8-2.0); ALKALINE PHOSPHATASE 87 IU/L (40-150); ANION GAP 15.1 mmol/L (8-16); BLOOD UREA NITROGEN 8 mg/dL (7-26); BUN/CREATININE RATIO 12 (6-25); CALCIUM 8.9 mg/dL (8.4-10.2); CARBON DIOXIDE 22 mmol/L (22-29); CHLORIDE 108 mmol/L (98-107); CREATININE, SERUM 0.65 mg/dL (0.57-1.11); EST GLOMERULAR FILTRATION RATE > 60 ML/MIN (60-); GLUCOSE 71 mg/dL (74-118); POTASSIUM 4.1 mmol/L (3.5-5.1); SODIUM 141 mmol/L (136-145)
--- NOTE | 2018-02-26 07:46 | Progress Note ---
DATE: February 26, 2018 TIME: 6:30 a.m. OVERNIGHT: No events. Not passing flatus, but has been ambulating. REVIEW OF SYSTEMS: Denies any dizziness or chest pain. PHYSICAL EXAMINATION VITAL SIGNS: Reviewed. GENERAL: A tired-appearing woman resting in bed. HEENT: Anicteric. NG tube in place. CARDIOVASCULAR: Normal S1 and S2. LUNGS: Moderate breath sounds. ABDOMEN: Soft, nontender and nondistended. EXTREMITIES: No edema or calf tenderness. NEUROLOGICAL: Alert and oriented times 3. Moving all extremities. SKIN: Dry. PSYCHIATRIC: Normal affect. LABS: Reviewed. MEDICATIONS: Reviewed. ASSESSMENT: A 63-year-old woman with: 1. Small-bowel obstruction. 2. Uncontrolled hypertension. 3. History of colon cancer. 4. Hyperglycemia. 5. Overweight state. 6. Urinary tract infection with low-grade fever. 7. Hypothyroidism. 8. Ulcerative colitis. 9. Hyperlipidemia. 10. Urinary tract infection. PLAN 1. Add clonidine patch. 2. NG tube possible removal today. 3. Continue ambulation. 4. Follow up electrolytes this morning. 5. Hemoglobin A1c 4.9, LDL 48 and triglycerides 101. 6. Continue Zosyn for urinary tract infection. Job#: [id number] [facility]
[2018-02-26] MEDS ORDERED: CLONIDINE HCL 0.1 MG/24 HR 1 EA PATCH TOP SCH (08:00)
[2018-02-26] MEDS: FAMOTIDINE 20 MG/2 ML VIAL IV SCH ×2 (08:37→16:29)
[2018-02-26] MEDS: LEVOTHYROXINE SODIUM 100 MCG/VIAL IV SCH (09:48)
[2018-02-26] MEDS ORDERED: BISACODYL 10 MG SUPP PR NR (11:45)
[2018-02-26] MEDS: BISACODYL 10 MG SUPP PR SCH (12:14)
[2018-02-27] VITALS (9 sets, daily range): BP systolic 145–196; BP diastolic 50–88
[2018-02-27] MEDS: LABETALOL HCL 5 MG/ML 20ML VIAL IV PRN ×3 (00:05→17:11)
[2018-02-27] MEDS ORDERED: LABETALOL HCL 5 MG/ML 20ML VIAL IV STA (00:48)
[2018-02-27] MEDS ORDERED: HYDRALAZINE HCL 20 MG/ML VIAL ONE (00:56)
[2018-02-27] MEDS ORDERED: HYDRALAZINE HCL 20 MG/ML VIAL IV PRN (01:00)
[2018-02-27] MEDS: HYDROMORPHONE 1MG/1ML INJ IV PRN ×5 (01:45→21:10)
[2018-02-27] MEDS: SODIUM CHLORIDE 0.9% 1000ML 1,000 ML IV SCH ×4 (03:31→21:05)
[2018-02-27] MEDS: PIPER-TAZ 3.375 GM 50 ML IV SCH ×3 (04:00→20:09)
--- NOTE | 2018-02-27 07:56 | Progress Note ---
DATE: February 27, 2018 TIME: 7:37 a.m. OVERNIGHT: NG tube removed. REVIEW OF SYSTEMS: Denies any dizziness. PHYSICAL EXAMINATION VITAL SIGNS: Reviewed. GENERAL: A tired-appearing woman resting in bed. HEENT: Anicteric. CARDIOVASCULAR: Normal S1 and S2. LUNGS: Moderate breath sounds. ABDOMEN: Soft and nondistended. She has soreness on palpation of the abdomen. EXTREMITIES: No edema. SKIN: Dry. PSYCHIATRIC: Flat affect. LABS: Reviewed. MEDICATIONS: Reviewed. ASSESSMENT: A 63-year-old woman with: 1. Small-bowel obstruction. 2. Uncontrolled hypertension. 3. History of colon cancer. 4. Hyperglycemia with hemoglobin A1c 4.9, LDL 48. 5. Overweight state. 6. Urinary tract infection. 7. Hypothyroidism. 8. Ulcerative colitis. 9. Hyperlipidemia. PLAN 1. Start oral antihypertensive medications. 2. Ambulate today. 3. Await full return of bowel function. 4. Continue clear liquid diet. 5. Continue antibiotics. 6. Control blood pressure. Job#: [id number] [facility]
[2018-02-27] MEDS ORDERED: CLONIDINE HCL 0.2 MG/24 HR 1 EA PATCH TOP SCH (08:00)
[2018-02-27] MEDS: FAMOTIDINE 20 MG/2 ML VIAL IV SCH ×2 (08:03→16:58)
[2018-02-27] MEDS: NIFEDIPINE CR 30 MG TAB PO SCH ×2 (08:16→21:10)
[2018-02-27] MEDS: LEVOTHYROXINE SODIUM 100 MCG/VIAL IV SCH (09:40)
[2018-02-28] VITALS: BP 137/63
[2018-02-28] MEDS: HYDROMORPHONE 1MG/1ML INJ IV PRN ×2 (01:37→07:54)
[2018-02-28] MEDS: SODIUM CHLORIDE 0.9% 1000ML 1,000 ML IV SCH (03:31)
[2018-02-28 04:00] VITALS: BP 133/63
[2018-02-28] MEDS: PIPER-TAZ 3.375 GM 50 ML IV SCH (04:00)
[2018-02-28 07:00] VITALS: BP 109/53
[2018-02-28] MEDS ORDERED: PEPCID20 MG PO (07:10)
[2018-02-28] MEDS ORDERED: FLAGYL500 MG PO (07:10)
[2018-02-28] MEDS ORDERED: SENNA LAX8.6 MG PEG (07:10)
[2018-02-28 08:59] VITALS: BP 109/53
[2018-02-28] MEDS: FAMOTIDINE 20 MG/2 ML VIAL IV SCH (09:55)
[2018-02-28] MEDS: LEVOTHYROXINE SODIUM 100 MCG/VIAL IV SCH (09:55)
[2018-02-28] MEDS: NIFEDIPINE CR 30 MG TAB PO SCH (09:55)
--- NOTE | 2018-02-28 09:55 | Discharge Summary ---
PRINCIPAL DIAGNOSES 1. Small-bowel obstruction, status post spontaneous resolution with nasogastric tube. 2. Uncontrolled hypertension. 3. History of colon cancer. 4. Hyperglycemia. Hemoglobin A1c 4.9, LDL 48. 5. Overweight state. 6. Urinary tract infection. 7. Hypothyroidism. 8. Ulcerative colitis. 9. Hyperlipidemia. SECONDARY DIAGNOSIS: Ulcerative colitis. CHIEF COMPLAINT: Abdominal pain, nausea and vomiting. HISTORY OF PRESENT ILLNESS: This is a 63-year-old woman with abdominal pain, nausea and vomiting. Refer to the H and P for further details. HOSPITAL COURSE: Patient was found to have small-bowel obstruction. She had conservative management with NG tube and spontaneously resolved obstruction. Had a bowel movement yesterday. For her uncontrolled hypertension, medication was adjusted. She had a urinary tract infection treated with antibiotics. Hypothyroidism and history of ulcerative colitis. Hyperglycemia was evaluated with hemoglobin A1c, which was 4.9 and LDL 48. Does not have diabetes. The patient is doing better and currently appropriate for discharge. Will follow up. DISCHARGE MEDICATIONS: Per electronic medical records. FOLLOWUP 1. Primary care doctor in [address] Bonilla in 2 weeks. 3. Surgery as directed. CONDITION ON DISCHARGE: Stable and improved. DISCHARGE LOCATION: Home. JENNIFER CASTILLO MD Job#: [id number] [place]
== END 2018-02-28 11:40 | disposition home or self-care (01) | DRG 389 ==
LOC: ER 13:55 → ERHOLD 20:02 → MED/SURG 20:28 → OBSVTOIN 02-26 08:50 → MED/SURG 02-26 11:15 → ACU 02-26 11:15
PROVIDERS: ADMIT Internal Medicine; ATTEND Internal Medicine
DX: K56.50 Intestinal adhesions [bands], unspecified as to partial versus complete obstruction (principal); K51.90 Ulcerative colitis, unspecified, without complications; N39.0 Urinary tract infection, site not specified; Z85.038 Personal history of other malignant neoplasm of large intestine; E66.9 Obesity, unspecified; Z68.27 Body mass index [BMI] 27.0-27.9, adult; E03.9 Hypothyroidism, unspecified; E78.5 Hyperlipidemia, unspecified; E16.2 Hypoglycemia, unspecified; R73.9 Hyperglycemia, unspecified
CPT/HCPCS: 36415; 74018; 74022; 74177; 80053; 80061; 81001; 82550; 82553; 83036; 84484; 85025; 85610; 85730; 93005; 96361; 99285; G0378; J0360; J1170; J2270; J2405; J2543; J7030; Q9967

== ENCOUNTER 2018-08-03 22:29 | Emergency (ER) | payer OTHER ==
[~2018-08-03] VITALS: Ht 167.6 cm; Wt 75.7 kg
[~2018-08-03 22:29] MED LIST changes: +FLAGYL500 MG PO; +PEPCID20 MG PO; +SENNA LAX8.6 MG PEG
[2018-08-03] MEDS ORDERED: ONDANSETRON HCL INJ 2 MG/ML VIAL IV STA (22:49)
[2018-08-03] MEDS ORDERED: HYDROMORPHONE 2MG/ML 2 MG/ML ML IV ONE (23:00)
[2018-08-03 23:01] LABS: BASOPHILS % 0.4 % (0.0-1.0); EOSINOPHILS # (AUTO) 0.1 (0.0-0.4); EOSINOPHILS % 1.1 % (0.0-6.0); HEMATOCRIT 42.5 % (34.2-44.1); HEMOGLOBIN 13.7 g/dL (12.0-16.0); LYMPHOCYTES # (AUTO) 1.7 (1.0-3.2); LYMPHOCYTES % 18.3 % (18.0-39.1); MEAN CORPUSCULAR HEMOGLOBIN 29.1 pg (28-32); MEAN CORPUSCULAR HGB CONC 32.2 g/dL (31-35); MEAN CORPUSCULAR VOLUME 90.4 fL (81-99); MONOCYTES # (AUTO) 0.6 (0.2-0.8); MONOCYTES % 6.5 % (4.4-11.3); NEUTROPHILS # (AUTO) 6.7 (2.1-6.9); NEUTROPHILS % 73.4 % (38.7-80.0); PLATELET COUNT 250 x10e3/uL (140-360); RED CELL DISTRIBUTION WIDTH 13.9 % (11.7-14.4)
[2018-08-03 23:19] LABS: ALANINE AMINOTRANSFERASE 32 IU/L (0-55); ALBUMIN 3.9 g/dL (3.5-5.0); ALBUMIN/GLOBULIN RATIO 1.5 (0.8-2.0); ALKALINE PHOSPHATASE 160 IU/L (40-150); ANION GAP 14.8 mmol/L (8-16); BLOOD UREA NITROGEN 12 mg/dL (7-26); BUN/CREATININE RATIO 17 (6-25); CALCIUM 9.3 mg/dL (8.4-10.2); CARBON DIOXIDE 27 mmol/L (22-29); CHLORIDE 105 mmol/L (98-107); CREATININE, SERUM 0.71 mg/dL (0.57-1.11); EST GLOMERULAR FILTRATION RATE > 60 ML/MIN (60-); GLUCOSE 109 mg/dL (74-118); LIPASE 41 U/L (8-78); POTASSIUM 3.8 mmol/L (3.5-5.1); SODIUM 143 mmol/L (136-145)
[2018-08-03] MEDS ORDERED: DIATRIZOATE MEGL/DIATRIZOA SOD 30 ML BTL PO ONE (23:21)
[2018-08-04 00:04] LABS: BILIRUBIN,URINE NEGATIVE (NEGATIVE); CLARITY,URINE CLOUDY (CLEAR); COLOR,URINE YELLOW (YELLOW); KETONES,URINE NEGATIVE (NEGATIVE); LEUKOCYTE ESTERASE ,URINE NEGATIVE (NEGATIVE); NITRITE,URINE POSITIVE (NEGATIVE); PROTEIN,URINE DIPSTICK TRACE (NEGATIVE); URINE UROBILINOGEN 0.2 mg/dL (0.2 - 1)
[2018-08-04 00:05] LABS: AMORPHOUS SEDIMENT,URINE MODERATE (FEW); BACTERIA,URINE MANY /HPF; EPITHELIAL CELLS,URINE FEW /LPF; RBC,URINE 0-5 /HPF (0-5); WBC,URINE (MAN) 0-5 /HPF (0-5)
--- NOTE | 2018-08-04 00:10 | Diagnostic Imaging Report ---
EXAM: ABDOMEN ACUTE SERIES W/PA CXR INDICATION: Midabdominal/periumbilical pain COMPARISON: AP view of the chest February 25, 2018 and abdominal x-ray February 26, 2018 FINDINGS: LINES/TUBES: Stable left subclavian chest port LUNGS: No consolidations or edema. PLEURA: No effusions or pneumothorax. HEART AND MEDIASTINUM: Normal size and contour. BOWEL PATTERN: Non-obstructed bowel gas pattern. BONES AND SOFT TISSUES: No acute bone findings. No abnormal calcifications. Bilateral breast implants. Surgical sutures project over the pelvis. IMPRESSION: No acute thoracic abnormality. No evidence for bowel obstruction. Signed by: Dr. Lucie Ortiz M.D. on 08/04/2018 12:07 AM
[2018-08-04 00:48] VITALS: BP 168/81
== END 2018-08-04 00:45 | disposition home or self-care (01) ==
LOC: ER 22:29
DX: R10.9 Unspecified abdominal pain (principal); R11.2 Nausea with vomiting, unspecified; I10 Essential (primary) hypertension; E78.5 Hyperlipidemia, unspecified; E03.9 Hypothyroidism, unspecified; Z85.038 Personal history of other malignant neoplasm of large intestine
CPT/HCPCS: 36415; 74022; 80053; 81001; 83690; 85025; 99283; J2405

== ENCOUNTER → 2021-01-18 | Day surgery (SDC) | payer OTHER ==
[~2021-01-18] MED LIST changes: +GLUCAGON FOR INJ 1 MG VIAL ONE; +HYOSCYAMINE SULFATE 0.5 MG/ML INJ ONE; +TAPAZOLE5 MG PO
[2021-01-18 14:00] VITALS: BP 113/69
== END | disposition home or self-care (01) ==
LOC: OR 10:14
PROVIDERS: ATTEND Internal Medicine Gastroenterology
DX: Z12.11 Encounter for screening for malignant neoplasm of colon (principal); K51.919 Ulcerative colitis, unspecified with unspecified complications; K63.5 Polyp of colon; Z85.038 Personal history of other malignant neoplasm of large intestine; I10 Essential (primary) hypertension; Z68.27 Body mass index [BMI] 27.0-27.9, adult; K59.01 Slow transit constipation; Z01.810 Encounter for preprocedural cardiovascular examination; Z01.812 Encounter for preprocedural laboratory examination; Z20.822 Contact with and (suspected) exposure to COVID-19
CPT/HCPCS: 45380; 93005; J1610; J1980; U0002; 45378; 45384